=== PATIENT | female | born 1975 | race Caucasian/White ===

== ENCOUNTER 2018-06-14 00:18 | Emergency (ER) | payer OTHER ==
[2018-06-14 00:35] VITALS: BP 150/86; PULSE 85; TEMP 98.8; BMI 42.2
--- NOTE | 2018-06-14 00:39 | PDOC ---
Attending Attestation - Resident Resident Name: Mario Jensen - ED Attending Attestation I have performed the following: I have examined & evaluated the patient, The case was reviewed & discussed with the resident, I agree w/resident's findings & plan, Exceptions are as noted - HPI HPI: 06/14/18 02:30 43F denies any pmh here with 4 hours of sharp lower abdominal pain that radiates to her back. A/w vaginal bleeding, [currently on her period]. + passing gas, No n/v/d, f/c, sick contacts, recent travel. Was seen last month at [facility] for same complaint, was cleared and discharge, pt unable to recall work up. - Physicial Exam PE: 06/14/18 02:32 NAD, AOx3, Normal wob, resting comfortably on stretcher No cvat Obese, abd soft, nt, nd, no guarding, no rebound, +bs x4 - Medical Decision Making 06/14/18 02:32 RLQ and suprapubic abdominal px a/w vaginal bleeding Consider appy, gu infection, simple and ascending, pulmonary care nurse cyst, hemorrhage, torsion , ectopic f/u labs, tvus Not TVUS with fibroids o/w normal benign, non-peritoneal exam, unlikely acute abdomen dc with pcp follow up, return instructions
--- NOTE | 2018-06-14 00:55 | PDOC ---
History of Present Illness - General Stated Complaint: ABD PAIN Time Seen by Provider: 06/14/18 00:27 History Source: Patient Exam Limitations: Language Barrier (Pt refused supervisor hand silvering; son is translating) - History of Present Illness Initial Comments: 06/14/18 00:50 43F with no PMH who presents to the ER with 4 hours of acute onset abdominal pain. The patient describes a sharp lower abdominal pain which radiates to her back. She denies any dysuria, hematuria (however, pt is currently on her period) , vaginal discharge, fever, chills, nausea, vomiting. She admits to having this pain 1 month ago and presented to [place] ED for workup. She states that they "did nothing" and the pain went away on its own. She tried taking tylenol today without any alleviation in her pain. Past History - Past Medical History Allergies/Adverse Reactions: Allergies Allergy/AdvReac Type Severity Reaction Status Date / Time No Known Allergies Allergy Verified 06/14/18 00:33 Home Medications: Ambulatory Orders Sulfamethoxazole/Trimethoprim [Bactrim Ds -] 1 tab PO BID #6 tablet 06/14/18 - Suicide/Smoking/Psychosocial Hx Smoking History: Never smoked Have you smoked in the past 12 months: No Information on smoking cessation initiated: No Hx Alcohol Use: No Drug/Substance Use Hx: No Review of Systems - Review of Systems Able to Perform ROS?: Yes Comments:: 06/14/18 01:03 GENERAL/CONSTITUTIONAL: No fever or chills. No weakness. HEAD, EYES, EARS, NOSE AND THROAT: No change in vision. No ear pain or discharge. No sore throat. CARDIOVASCULAR: No chest pain, palpitations, or lightheadedness. RESPIRATORY: No cough, wheezing, shortness of breath, or hemoptysis. GASTROINTESTINAL: + for lower abdominal pain. No nausea, vomiting, diarrhea, or constipation. GENITOURINARY: No dysuria, frequency, hematuria, or change in urination. MUSCULOSKELETAL: No joint or muscle swelling or pain. No neck or back pain. SKIN: No rash or lesions. NEUROLOGIC: No headache, numbness, tingling, focal weakness, loss of consciousness, or change in strength/sensation. Is the patient limited Latvian proficient: No *Physical Exam - Vital Signs Last Vital Signs Temp Pulse Resp BP Pulse Ox 98.8 F 85 22 H 150/86 99 06/14/18 00:33 06/14/18 00:33 06/14/18 00:33 06/14/18 00:33 06/14/18 00:33 - Physical Exam Comments: 06/14/18 01:04 GENERAL: Well developed, well nourished. Awake and alert. No acute distress. HEENT: Normocephalic, atraumatic. Hearing grossly normal. Moist mucous membranes. PERRLA, EOMI. No conjunctival pallor. Sclera are non-icteric. NECK: Supple. Full ROM. No JVD. CARDIOVASCULAR: Regular rate and rhythm. No murmurs, rubs, or gallops. PULMONARY: No evidence of respiratory distress. Lungs clear to auscultation bilaterally. No wheezing, rales or rhonchi. ABDOMINAL: Soft. TTP over suprapubic abdomen and RLQ. Non-distended. No rebound or guarding. GENITOURINARY: No CVA tenderness bilaterally. MUSCULOSKELETAL: Midline L-spine tenderness. Normal range of motion at all joints. EXTREMITIES: No cyanosis. No clubbing. No edema. No calf tenderness or swelling. SKIN: Warm and dry. Normal capillary refill. No rashes. No jaundice. NEUROLOGICAL: Alert, awake, appropriate. Cranial nerves 2-12 intact. Normal speech. Gait is normal without ataxia. PSYCHIATRIC: Cooperative. Good eye contact. Appropriate mood and affect. ED Treatment Course - LABORATORY CBC & Chemistry Diagram: 06/14/18 00:55 06/14/18 00:55 Medical Decision Making - Medical Decision Making 06/14/18 01:04 43F with no PMH who presents with acute onset lower abdominal pain concerning for UTI, ovarian cyst, pyelo, appendicitis. Due to pt's cyclical pattern of pain , concern for CIVIL SERVICE CLERK pathology. Will order labs and UA with transvaginal US. Pt comfortable appearing with stable vitals. Of note, pt states that she finished her period yesterday and began bleeding again today, raising concern for CIVIL SERVICE CLERK pathology and less likely GI. 06/14/18 02:20 US Impression: 1. Patient appears actively bleeding with moving blood product noted level of the cervix. 2. Fibroid uterus. 3. Right ovary unremarkable. No evidence of ovarian torsion. 4. Nonvisualization left ovary. Pt's fibroid is likely the cause of her pain due to its cyclical nature and vaginal bleeding. Much less concern for appendicitis due to pt's lack of nausea , vomiting, diarrhea, fevers, and no rebound or guarding on exam. Pt also had no leukocytosis on labs. Will give IV tylenol for pain control and reassess. 06/14/18 03:47 Pt feels much better. Will d/c with CIVIL SERVICE CLERK f/u. *DC/Admit/Observation/Transfer Diagnosis at time of Disposition: Abdominal pain Qualifiers: Abdominal location: lower abdomen, unspecified Qualified Code(s): R10.30 - Lower abdominal pain, unspecified - Discharge Dispostion Disposition: HOME Condition at time of disposition: Stable Decision to Admit order: No - Referrals Referrals: Alyssia Avitia [Primary Care Provider] - Chuy Biggs MD [Staff Physician] - - Patient Instructions Printed Discharge Instructions: DI for Abdominal Pain-Adult Additional Instructions: Your ER visit is not complete until your follow up with your gynecologst, Dr. Biggs. Please follow up with your CIVIL SERVICE CLERK in 1-2 days. Please return to the ER if you have any signs or symptoms of chest pain, shortness of breath, uncontrollable fever, chills, nausea, vomiting, numbness, tingling, or weakness in any part of your body, changes in vision, or slurred speech. Please take your medications as prescribed. Please return to the ER if symptoms persist, worsen, or new symptoms arise. Peck visita a la citlalli de emergencias no est completa hasta peck seguimiento con peck gineclogo, el Dr. Biggs. Por favor gigi un seguimiento con peck gineclogo en 1 -2 herron. Regrese a la citlalli de emergencias si tiene signos o sntomas de dolor en el pecho , dificultad para respirar, fiebre incontrolable, escalofros, nuseas, vmitos , entumecimiento, hormigueo o debilidad en alguna parte de peck cuerpo, cambios en la visin o dificultad para hablar. Por favor, tome emerald medicamentos segn lo prescrito. Regrese a la citlalli de emergencias si los sntomas persisten, empeoran o surgen nuevos sntomas. Print Language: GRENADIAN - Post Discharge Activity
[2018-06-14 01:21] LABS: BASO % 0.8 % (0-2.0); EOS % 3.1 % (0-4.5); HEMATOCRIT 37.9 % (32.4-45.2); HEMOGLOBIN 12.5 GM/dL (10.7-15.3); LYMPH % 24.6 % (8-40); MCH 29.9 pg (25.7-33.7); MCHC 32.9 g/dl (32.0-36.0); MEAN PLT VOLUME 7.7 fl (7.5-11.1); MONO % 6.7 % (3.8-10.2); NEUT % 64.8 % (42.8-82.8); PLATELET COUNT 352 K/MM3 (134-434); RBC 4.17 M/mm3 (3.60-5.2); RDW 13.8 % (11.6-15.6); WHITE BLOOD COUNT 7.8 K/mm3 (4.0-10.0)
[2018-06-14 01:26] LABS: EPI CELLS 3.9 /HPF (0-5/HPF); HCG,QUALITATIVE URINE Negative; PH,URINE 6.5 (5.0-8.0); URINE APPEARANCE CLEAR; URINE BILIRUBIN NEGATIVE (NEGATIVE); URINE CASTS 0 /lpf (0-8); URINE COLOR RED; URINE GLUCOSE (UA) NEGATIVE (NEGATIVE); URINE KETONE NEGATIVE (NEGATIVE); URINE LEUK ESTERASE TRACE (NEGATIVE); URINE NITRITE NEGATIVE (NEGATIVE); URINE PROTEIN TRACE (NEGATIVE); URINE RBC 14 /hpf (0-4); URINE UROBILINOGEN 0.2 mg/dL (0.2-1.0); URINE WBC 3 /hpf (0-5)
[2018-06-14 01:48] LABS: ALBUMIN 3.6 g/dl (3.4-5.0); ALK PHOS 132 U/L (45-117); ANION GAP 4 MMOL/L (8-16); BILIRUBIN,TOTAL 0.2 mg/dL (0.2-1); BLOOD UREA NITROGEN 10 mg/dL (7-18); CALCIUM 8.5 mg/dL (8.5-10.1); CHLORIDE 107 mmol/L (98-107); CO2 28 mmol/L (21-32); CREATININE 0.4 mg/dL (0.55-1.3); GLUCOSE,RANDOM 107 mg/dL (74-106); LIPASE 135 U/L (73-393); POTASSIUM 4.3 mmol/L (3.5-5.1); SGOT/AST 26 U/L (15-37); SGPT/ALT 58 U/L (13-61); SODIUM 138 mmol/L (136-145); TOT PROT 7.6 g/dl (6.4-8.2)
[2018-06-14] MEDS ORDERED: ACETAMINOPHEN 1000 MG/100 ML VIAL (NON FORMULARY) IVPB ONE (02:17)
[2018-06-14] MEDS ORDERED: ACETAMINOPHEN INJECTION 100 ML IVPB ONE (02:21)
[2018-06-14 05:46] LABS: YEAST FEW (NEGATIVE)
== END 2018-06-14 04:03 | disposition home or self-care (01) ==
LOC: JER 00:18
PROC: 3E033NZ Introduction of Analgesics, Hypnotics, Sedatives into Peripheral Vein, Percutaneous Approach (ICD-10-PCS; principal; 2018-06-14)
DX: R10.30 Lower abdominal pain, unspecified (principal)
CPT/HCPCS: 36415; 76830-TC; 80053; 81003; 83690; 84703; 85025; 96374; 99282-25; J0131